=== PATIENT | female | born 1950 | race Caucasian/White ===

== ENCOUNTER → 2018-03-19 | Outpatient (CLI) | payer MEDICARE, OTHER | END | disposition home or self-care (01) | LOC: PCVCCLINIC 11:38 | PROVIDERS: ATTEND Internal Medicine | DX: I48.0 Paroxysmal atrial fibrillation (principal); E11.22 Type 2 diabetes mellitus with diabetic chronic kidney disease; I12.9 Hypertensive chronic kidney disease with stage 1 through stage 4 chronic kidney disease, or unspecified chronic kidney disease; N18.2 Chronic kidney disease, stage 2 (mild); E78.5 Hyperlipidemia, unspecified; G47.33 Obstructive sleep apnea (adult) (pediatric); G47.30 Sleep apnea, unspecified; E66.01 Morbid (severe) obesity due to excess calories; Z79.4 Long term (current) use of insulin; Z79.899 Other long term (current) drug therapy | CPT/HCPCS: 93005; G0463 ==

== ENCOUNTER → 2018-03-30 | Outpatient (CLI) | payer MEDICARE, OTHER ==
[~2018-03-30] MED LIST: REGADENOSON 0.4 MG/5 ML DISP.SYRIN. IV ONE
--- NOTE | 2018-03-30 13:20 | PCVCIMAG ---
APPROVED REPORT Study performed: 03/30/2018 08:36:14 EXAM: Comprehensive 2D, Doppler, and color-flow Echocardiogram Patient Location: Echo lab Status: routine BSA: 1.97 HR: 68 bpmBP: 138/78 mmHg Rhythm: NSR Other Information Study Quality: Technically Difficult Risk Factors: Cardiac Risk Factors: HTN, DM Indications Diabetes Atrial Fibrillation 2D Dimensions IVSd: 9.29 (7-11mm)LVOT Diam: 18.27 (18-24mm) LVDd: 37.28 mm LVPWs: 36.17 mm PWd: 10.91 (7-11mm)Ascending Ao: 35.32 (22-36mm) LVDs: 23.30 (25-40mm) Left Atrium: 33.56 (27-40mm) Aortic Root: 27.35 mm LV Single Plane 4CH: 52.29 % Volumes Left Atrial Volume (Systole) Single Plane 4CH: 29.20 mLSingle Plane 2CH: 31.39 mL LA ESV Index: 17.00 mL/m2 Aortic Valve AoV Peak Loc.: 1.40 m/s AO Peak Gr.: 7.80 mmHgLVOT Max P.52 mmHg LVOT Max V: 1.06 m/s DUSTIN Vmax: 2.00 cm2 Mitral Valve E/A Ratio: 75.0 MV E Max Loc.: 0.75 m/s MV A Loc.: 0.01 m/s Left Ventricle The left ventricle is normal size. There is normal LV segmental wall motion. Mild concentric left ventricular hypertrophy. Left ventricular systolic function is normal. The left ventricular ejection fraction is within the normal range. LVEF is 60-65%. Mild diastolic dysfunction is present (impaired relaxation pattern). Right Ventricle The right ventricle is normal size. The right ventricular systolic function is normal. Atria The left atrium size is normal. The right atrium size is normal. Aortic Valve The aortic valve is normal in structure. No aortic regurgitation is present. There is no aortic valvular stenosis. Mitral Valve The mitral valve is normal in structure. There is no mitral valve regurgitation noted. No evidence of mitral valve stenosis. Tricuspid Valve The tricuspid valve is normal in structure. There is no tricuspid valve regurgitation noted. Pulmonic Valve The pulmonary valve is normal in structure. There is no pulmonic valvular regurgitation. Great Vessels The aortic root is normal in size. IVC is normal in size and collapses >50% with inspiration. Pericardium There is no pericardial effusion. <Conclusion> Left ventricular systolic function is normal. There is normal LV segmental wall motion. LVEF 60-65%. Mild concentric LVH. Mild diastolic dysfunction The aortic valve is normal in structure. No aortic regurgitation or stenosis The mitral valve is normal in structure. No mitral valve regurgitation. There is no pericardial effusion.
--- NOTE | 2018-03-30 13:26 | PCVCIMAG ---
APPROVED REPORT Imaging Protocol: Rest Tc-99m/Stress Tc-99m 1 day Study performed: 03/30/2018 09:19:09 Indication: PAF Patient Location: Out-Patient Stress Nurse: Kamini Joe RN, Patrizia Hodge RN HI Tech:Domitila SANDIE RenteriaMT Ht: 5 ft 4 in Wt: 197 lbs BSA: 1.94 m2 HR: 75 bpm BP: 136/74 mmHg BMI: 33.8 Rhythm: Sinus Rhythm Medical History Medical History: HTN, Hyperlipidemia, Diabetes Medications: Catapres, Simvastatin, Losartan, Eliquis, Metoprolol Allergies: No known drug allergies Cardiac Risk Factors: Age, FHX of CAD Pretest Chest Pain Characteristics: No chest pain Exercise History: Physically active Resting Data Rest SPECT myocardial perfusion imaging was performed in supine position 45 minutes following the intravenous injection of 10.8 mCi of Tc-99m Sestamibi. Time of rest injection: 914 Date: 03/30/2018 Administration Route: IV Administration Site: Right Hand Pharmacologic Stress Pharmacologic stress test was performed by injecting Regadenoson 0.4 mg IV push over 10-15 seconds immediately followed by the intravenous injection of 31.9 mCi of Tc-99m Sestamibi. Time of stress injection: 1040 Date: 03/30/2018 Administration Route: IV Administration Site: Right Hand Gated Stress SPECT was performed 45 minutes after stress injection. The images were gated to evaluate regional wall motion and calculate left ventricular ejection fraction. Stress Test Details Stress Test: Pharmacologic stress testing performed using 0.4 mg of regadenoson per 5 mL given IV over 10 seconds. Reason for pharmacologic stress test: shoulder injury. HRMax Heart Rate (APMHR): 152 bpm Resting HR: 75 bpmTarget HR (85% APMHR): 129 bpm Max HR Achieved: 98 bpm % of APMHR: 64 Recovery HR: 90 bpm BP Resting BP: 136/74 mmHg Max BP: 141/67 mmHg Recovery BP: 142/66 mmHg ECG Resting ECG: Sinus Rhythm, nonspecific ST-T abnormalities Stress ECG: Sinus Rhythm, nonspecific ST-T abnormalities ST Change: None Maximum ST Deviation: 0 mm Arrhythmia: None Recovery ECG: Sinus Rhythm, nonspecific ST-T abnormalities Recovery ST Change: None Recovery ST Deviation: 0 mm Recovery Arrhythmia: None Clinical Reason for Termination: Completed protocol Stress Symptoms: Chest pain, Dyspnea Exercise duration: 0 min 55 sec Symptoms resolved with caffeine. Stress ECG Conclusion ECG: Non-ischemic Clinical: Non-ischemic Study Quality Study: Good Study Data Post stress, the left ventricular ejection was 73%.. SSS: 0 SRS: 0 SDS: 0 TID = 1.14. Perfusion No evidence of stress induced ischemia or prior myocardial infarction. Wall Motion Normal left ventricular size and function with no regional wall motion abnormalities. Nuclear Conclusion No evidence of stress induced ischemia or prior myocardial infarction. Normal left ventricular size and function with no regional wall motion abnormalities. Post stress, the left ventricular ejection was 73%. No prior study available for comparison. Interpreted by: Efe Jimenez MD Electronically Approved: 03/30/2018 13:06:00 <Conclusion> ECG: Non-ischemic Clinical: Non-ischemic
== END | disposition home or self-care (01) ==
LOC: PCVCIMAG 09:27
PROVIDERS: ATTEND Internal Medicine
DX: I48.0 Paroxysmal atrial fibrillation (principal); R94.31 Abnormal electrocardiogram [ECG] [EKG]; E11.9 Type 2 diabetes mellitus without complications; I10 Essential (primary) hypertension; E78.5 Hyperlipidemia, unspecified; E66.01 Morbid (severe) obesity due to excess calories; M79.7 Fibromyalgia; G62.9 Polyneuropathy, unspecified; Z82.49 Family history of ischemic heart disease and other diseases of the circulatory system; Z82.3 Family history of stroke
CPT/HCPCS: 78452; 93017; 93306; A9500; J2785

== ENCOUNTER → 2018-10-12 | Outpatient (CLI) | payer MEDICARE, OTHER | END | disposition home or self-care (01) | LOC: PCVCCLINIC 14:10 | PROVIDERS: ATTEND Internal Medicine | DX: I12.9 Hypertensive chronic kidney disease with stage 1 through stage 4 chronic kidney disease, or unspecified chronic kidney disease (principal); E11.22 Type 2 diabetes mellitus with diabetic chronic kidney disease; N18.2 Chronic kidney disease, stage 2 (mild); R00.0 Tachycardia, unspecified; E78.5 Hyperlipidemia, unspecified; G47.33 Obstructive sleep apnea (adult) (pediatric); E66.01 Morbid (severe) obesity due to excess calories; Z79.899 Other long term (current) drug therapy | CPT/HCPCS: 36415; 80061; 93005; G0463 ==